=== PATIENT | male | born 1940 | race Caucasian/White ===

== ENCOUNTER → 2017-01-20 | Outpatient (CLI) | payer OTHER ==
[2016-04-17 10:00] VITALS: BP 157/92
[~2017-01-20] MED LIST: AMLO10TA2 PO; ASPI325T4 PO; ATORVASTATIN CA80 MG PO; ENAL20TA4 PO; ESCI20TA10 PO; GABA-585 PO; HYDR12.58 PO; INSU100V13 SQ; INSU100V31 SQ; METF500T4 PO; METO25TA9 PO; MULT1TAB52 PO; SPIR25TA3 PO
--- NOTE | 2017-01-20 12:19 | RAD ---
EXAM: Cervical spine MRI without contrast. HISTORY: Neck pain. TECHNIQUE: Multiplanar, multisequence magnetic resonance imaging of the cervical spine was performed without contrast. COMPARISON: 01/11/2014 FINDINGS: There is instrumented anterior spinal fusion and interbody fusion and CT 3 through C5. There is minimal decreased anterior vertebral body height at C6, C7 and T1, likely degenerative or the sequela of remote injury. There is endplate remodeling with disc space narrowing predominantly at C6-C7. There is deformation of the spinal cord at multiple levels due to central canal stenosis. 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 No additional spinal cord lesion is seen. There is moderate right maxillary and sphenoid sinus mucosal thickening. There is artifact from metallic median sternotomy wires at the inferior margin of the field of view. There is prominent epidural fat within the dorsal inferior cervical and superior thoracic levels. No suspicious osseous lesion is seen. At C2-C3, there is a shallow posterior central disc protrusion superimposed on endplate remodeling. There is mild left facet arthropathy. There is mild left foraminal stenosis. There is mild central canal stenosis measuring 9.3 mm in anterior posterior dimension. At C3-C4, there is instrumented fusion. There is endplate remodeling. There is mild facet arthropathy. There is uncovertebral arthropathy. There is moderate bilateral foraminal stenosis. There is flattening of the ventral aspect of the spinal cord with mild central canal stenosis measuring 8.6 mm in anterior posterior dimension. At C4-C5, there is instrumented fusion. There is mild facet arthropathy. There is uncovertebral arthropathy. There is mild bilateral foraminal stenosis. There is minimal central canal stenosis measuring 9.5 mm in anterior posterior dimension. At C5-C6, there is a suspected right paracentral disc protrusion superimposed on a disc bulge and endplate remodeling. There is mild facet arthropathy. There is uncovertebral arthropathy. There is buckling of the ligamentum flavum. There is moderate right and mild left foraminal stenosis. There is moderate central canal stenosis measuring 8.1 mm in anteroposterior dimension. At C6-C7, there are left greater than right posterior lateral disc osteophyte complex is superimposed on a disc bulge and endplate osteophytosis. There is mild facet arthropathy. There is uncovertebral arthropathy. There is moderate right and moderate to severe left foraminal stenosis. There is minimal central canal stenosis measuring 9.7 mm in anterior posterior dimension. IMPRESSION: 1. Multilevel degenerative changes of the cervical spine, described in detail above. This is similar compared to the prior's study. This results in foraminal and central canal stenosis of the aforementioned levels. 2. 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 3. Instrumented anterior spinal fusion and interbody fusion at C3-C5, stable in appearance. 4. Stable minimal decreased anterior vertebral body height at C6, C7 and T1. 5. Stable dorsal epidural lipomatosis at the upper thoracic and inferior cervical levels. Electronically signed by: Kaitlynn Aguiar MD (01/20/2017 12:16 PM)
== END | disposition home or self-care (01) ==
LOC: MRI 10:30
PROVIDERS: ATTEND Internal Medicine
DX: M47.12 Other spondylosis with myelopathy, cervical region (principal); M48.02 Spinal stenosis, cervical region
CPT/HCPCS: 72141